=== PATIENT | female | born 1985 | race Hispanic/Latino ===

== ENCOUNTER 2019-02-10 02:45 | Emergency (ER) | payer OTHER ==
[2019-02-10 03:16] VITALS: BP 128/76
[2019-02-10 03:41] LABS: Hematocrit 35.6 % (30.3-42.9); Hemoglobin 11.6 gm/dl (10.1-14.3); Mean Corpuscular HGB Conc 33 % (30-34); Mean Corpuscular Volume 77 fl (79-97); Platelet Count 260 K/mm3 (140-440); Red Blood Count 4.61 M/mm3 (3.65-5.03); Red Cell Distribution Width 14.4 % (13.2-15.2)
[2019-02-10] MEDS ORDERED: MORPHINE IV ONE (03:50)
[2019-02-10] MEDS ORDERED: MORPHINE ONE (03:59)
[2019-02-10 04:04] LABS: BUN/Creatinine Ratio 22; Blood Urea Nitrogen 11 mg/dL (7-17); Calcium 8.7 mg/dL (8.4-10.2); Hemolysis Index 4
--- NOTE | 2019-02-11 05:12 | Emergency Department Report ---
ED Seizure HPI - General Chief Complaint: Seizure Stated Complaint: SEIZURE Source: patient, EMS Mode of arrival: Stretcher Limitations: Other - History of Present Illness Initial Comments: 33 yo F w/ history of seizures presents following witnessed seizure activity. Pt reports noncompliance w/ her dilantin. Currently reports headache. Denies drug use. Denies regular alcohol use MD Complaint: seizure -: This morning Description of Episode: loss of consciousness Witnessed:: Yes Seizure History: known seizure disorder, history of non-compliance Possible Precipitating Event: other (med noncompliance) Treatments Prior to Arrival: none - Related Data Allergies Allergy/AdvReac Type Severity Reaction Status Date / Time naproxen Allergy Unknown Verified 02/10/19 03:03 paroxetine [From Paxil] Allergy Unknown Verified 02/10/19 03:03 ED Review of Systems ROS: Stated complaint: SEIZURE Other details as noted in HPI Comment: All other systems reviewed and negative Constitutional: denies: chills, fever Neurological: headache ED Past Medical Hx - Past Medical History Previous Medical History?: Yes Hx Seizures: Yes - Social History Smoking Status: Current Every Day Smoker Substance Use Type: Alcohol ED Physical Exam - General Limitations: Other General appearance: alert, in no apparent distress - Head Head exam: Present: atraumatic, normocephalic - Eye Eye exam: Present: normal appearance, PERRL, EOMI - ENT ENT exam: Present: mucous membranes moist - Neck Neck exam: Present: normal inspection - Respiratory Respiratory exam: Present: normal lung sounds bilaterally. Absent: respiratory distress - Cardiovascular Cardiovascular Exam: Present: regular rate, normal rhythm - GI/Abdominal GI/Abdominal exam: Present: soft. Absent: distended, tenderness - Extremities Exam Extremities exam: Present: normal inspection - Neurological Exam Neurological exam: Present: alert, oriented X3 - Psychiatric Psychiatric exam: Present: normal affect, normal mood - Skin Skin exam: Present: warm, dry, intact, normal color ED Course Vital Signs 02/10/19 02/10/19 03:12 07:18 Temperature 97.9 F Pulse Rate 89 Respiratory 20 20 Rate Blood Pressure 128/76 O2 Sat by Pulse 100 Oximetry - Reevaluation(s) Reevaluation #1: 02/10/19 04:30 Pt eloped ED Medical Decision Making - Lab Data Result diagrams: 02/10/19 03:25 02/10/19 03:25 Critical care attestation.: If time is entered above; I have spent that time in minutes in the direct care of this critically ill patient, excluding procedure time. ED Disposition Clinical Impression: Seizure Disposition: ELOPED Is pt being admited?: No Condition: Stable Referrals: LJ SANTO MD [Primary Care Provider] - 3-5 Days
== END 2019-02-10 04:30 | disposition left against medical advice (07) ==
LOC: ED 02:45
DX: G40.909 Epilepsy, unspecified, not intractable, without status epilepticus (principal); F17.200 Nicotine dependence, unspecified, uncomplicated; Z88.5 Allergy status to narcotic agent
CPT/HCPCS: 36415; 80048; 80185; 84703; 85027; 99284; J2270